=== PATIENT | male | born 1975 | race Caucasian/White ===

== ENCOUNTER 2018-07-29 06:22 | Day surgery (SDC) | payer OTHER ==
[2018-07-28 11:09] VITALS: BMI 25.7
[~2018-07-29 06:22] MED LIST: ACETAMINOPHEN 325 MG TABLET (FP) PO PRN; OFLOXACIN 0.3% OPHTHALMIC SOLUTION 5 ML BOTTLE OP SCH; TOBRAMYCIN/DEXAMETHASONE OPHTH. OINTMENT 1 TUBE OS ONE; TRIAMCINOLONE ACET 40MG/1ML VIAL IJ ONE
[2018-07-29] MEDS ORDERED: OFLOXACIN 0.3% OPHTHALMIC SOLUTION 5 ML BOTTLE ONE (06:36)
[2018-07-29 06:38] VITALS: TEMP 98.4
[2018-07-29] MEDS ORDERED: TRIAMCINOLONE ACET 40MG/1ML VIAL ONE (07:16)
[2018-07-29] MEDS ORDERED: TOBRAMYCIN/DEXAMETHASONE OPHTH. OINTMENT 1 TUBE ONE (07:19)
[2018-07-29] MEDS ORDERED: POVIDONE-IODINE 5% OPHTHALMIC PREP 30 ML SOLUTION ONE (07:20)
[2018-07-29] MEDS ORDERED: TETRACAINE 0.5% OPHTH SOLN 2 ML BOTTLE ONE (07:20)
[2018-07-29] MEDS ORDERED: MIDAZOLAM HCL 2 MG/2 ML SINGLE DOSE VIAL ONE ×2 (07:43)
[2018-07-29] MEDS ORDERED: LIDOCAINE HCL 2% JELLY (5 ML/TUBE) ONE (07:55)
[2018-07-29] MEDS ORDERED: LIDOCAINE HCL 2% JELLY (5 ML/TUBE) TP ONE (07:56)
[2018-07-29] MEDS ORDERED: POVIDONE-IODINE 5% OPHTHALMIC PREP 30 ML SOLUTION OS ONE (07:57)
[2018-07-29] MEDS ORDERED: KETOROLAC TROMETHAMINE 30 MG/1 ML VIAL ONE (08:05)
[2018-07-29] MEDS ORDERED: LIDOCAINE 1%/EPI 1:100000 (50 ML MULTI DOSE VIAL) INF ONE (08:08)
[2018-07-29] MEDS ORDERED: BSS (NA/CA/MG/K) BALANCED SALT SOLUTION OPHTH SOLN 15 ML BOTTLE OS ONE (08:08)
[2018-07-29] MEDS ORDERED: TOBRAMYCIN/DEXAMETHASONE OPHTH. OINTMENT 1 TUBE OS ONE (08:47)
[2018-07-29] MEDS ORDERED: TRIAMCINOLONE ACET 40MG/1ML VIAL IJ ONE (08:47)
--- NOTE | 2018-07-29 09:11 | OP ---
DATE OF OPERATION: DATE OF DICTATION: 07/29/2018 PREOPERATIVE DIAGNOSIS: Pterygium, left eye. POSTOPERATIVE DIAGNOSIS: Pterygium, left eye. PROCEDURE: Excision of left pterygium with conjunctival autograft and amniotic membrane transplant, left eye. ANESTHESIA: Topical, MAC. COMPLICATIONS: None. PROCEDURE: The patient was brought to the operating room and correctly identified along with the operative site. He was then prepped and draped in the usual sterile fashion including 5% Betadine solution in the conjunctival sac and an eyelid drape. An eyelid speculum was then placed into the left eye. The pterygium was marked at its base and 2 relaxing conjunctival incisions were made superior and inferior to the pterygium. Dissection was then performed to bare sclera with joe scissors. Using blunt dissection with the Joe scissors, the pterygium was freed from the corneal surface. It was then excised at its base and the sclera was noted to be free of any tissue. The conjunctival defect was measured and measured approximately 6 x 6 mm. Attention was then placed to the superotemporal conjunctiva and a 7 x 7 area was marked with a marking pen. Subconjunctival lidocaine was injected and the graft was fashioned. However, the graft was on the thinner side and I was only able to obtain approximately a 7 x 5-mm graft. The graft was brought over and secured near the limbus approximately 1 mm posterior with four 10-0 nylon sutures. Amniotic membrane was then used to cover the entire conjunctival defect as well as graft and secured with four 10-0 nylon sutures as well as Tisseel glue. At the end of the procedure both grafts were noted to be well positioned. Subconjunctival Kenalog was given at the operative site and the eye patched and shielded with TobraDex ointment. A drop of Betadine was also given. The patient was discharged from the operating room in a stable condition. KOMAL FERRO M.D. [id number] MTDD
[2018-07-29] MEDS ORDERED: ACETAMINOPHEN 325 MG TABLET (FP) ONE (09:54)
[2018-07-29] MEDS ORDERED: ACETAMINOPHEN 325 MG TABLET (FP) PO ONE (10:02)
[2018-07-29 10:35] VITALS: BP 121/67; PULSE 68
--- NOTE | 2018-07-31 17:45 | PATH ---
Surgical Pathology Report Patient Name: OZZIE BARNHART [facility]. Rec. #: [id number] /Age/Gender: 1975 (Age: 42) / M Account: [id number] Location: [facility] Taken: 07/29/2018 Received: 07/29/2018 Reported: 07/31/2018 Physicians: Rodolfo Dunbar M.D. Specimen(s) Received PTERYGIUM, LEFT EYE NASAL Clinical History Pterygium left eye Final Diagnosis PTERYGIUM, LEFT EYE NASAL, EXCISION: CONSISTENT WITH PTERYGIUM. Electronically Signed Polly Christianson M.D. Gross Description Received in formalin, labeled "pterygium left eye nasal" is a moscoso, irregular portion of soft tissue measuring 0.4 cm. in greatest dimension. The specimen is submitted in toto in one cassette. 07/29/201807/29/2018
== END 2018-07-29 10:45 | disposition home or self-care (01) ==
LOC: JASU-SURG 06:22
PROVIDERS: ATTEND Ophthalmology
PROC: 08U107Z Supplement of Left Eye with Autologous Tissue Substitute, Open Approach (ICD-10-PCS; principal; 2018-07-29 08:00)
DX: H11.002 Unspecified pterygium of left eye (principal)
CPT/HCPCS: 88304-TC

== ENCOUNTER 2024-12-17 20:26 | Emergency (ER) | payer OTHER ==
[2024-12-17 20:35] VITALS: BP 130/84; PULSE 81; RESP 16; TEMP 98.1; BMI 25.7
[2024-12-17] MEDS ORDERED: KETOROLAC TROMETHAMINE 60 MG/2 ML VIAL ONE (21:41)
[2024-12-17] MEDS: KETOROLAC TROMETHAMINE 60 MG/2 ML VIAL IM ONE (21:55)
[2024-12-17] MEDS: CycloBENZAprine HCL 10 MG TABLET (FP) PO ONE (22:00)
== END 2024-12-18 00:13 | disposition home or self-care (01) ==
LOC: FER 20:26
PROC: 3E0233Z Introduction of Anti-inflammatory into Muscle, Percutaneous Approach (ICD-10-PCS; principal; 2024-12-17)
DX: M54.50 Low back pain, unspecified (principal)
CPT/HCPCS: 72100-TC-FY; 99285-25